=== PATIENT | male | born 1955 | race Caucasian/White ===

== ENCOUNTER 2019-04-22 00:14 | Emergency (ER) | payer MEDICARE, BC | END 2019-04-22 02:17 | disposition home or self-care (01) | LOC: ERS 00:14 | DX: F41.9 Anxiety disorder, unspecified (principal); F43.0 Acute stress reaction; E11.9 Type 2 diabetes mellitus without complications; E78.5 Hyperlipidemia, unspecified; E78.00 Pure hypercholesterolemia, unspecified; I10 Essential (primary) hypertension; F31.9 Bipolar disorder, unspecified; Z79.4 Long term (current) use of insulin | CPT/HCPCS: 99283 ==

== ENCOUNTER 2019-04-24 12:40 | Emergency (ER) | payer MEDICARE, BC ==
[2019-04-24 13:52] LABS: #Basophils 0.1 thou/uL (0.0-0.2); #Eosinphils 0.2 thou/uL (0.0-0.7); #Lymphocytes 1.6 thou/uL (1.20-3.40); #Monocytes 0.7 thou/uL (0.11-0.59); #Neutrophils 5.4 thou/uL (1.40-6.50); %Basophils 0.8 % (0.0-1.0); %Eosinophils 2.6 % (0.0-10.0); %Lymphocytes 19.6 % (21.0-51.0); %Monocytes 8.7 % (0.0-10.0); %Neutrophils 68.3 % (42.0-75.0); Hemoglobin 13.6 g/dL (14.0-18.0); Mean Corpuscular HGB CONC 35.1 g/dL (32.0-36.0); Mean Corpuscular Hemoglobin 30.8 pg (27.0-31.0); Mean Corpuscular Volume 87.9 fL (78.0-98.0); Mean Platelet Volume 7.9 fL (7.4-10.4); Platelet Count 215 thou/uL (130-400); RBC Distribution Width 12.2 % (11.5-14.5)
[2019-04-24 14:11] LABS: ALT (SGPT) 14 U/L (8-55); AST (SGOT) 15 U/L (5-34); Albumin 4.2 g/dL (3.4-4.8); Alkaline Phosphatase 56 U/L (40-110); Anion Gap 13 mmol/L (10-20); BUN (Urea Nitrogen) 20 mg/dL (8.4-25.7); Bilirubin, Total 0.4 mg/dL (0.2-1.2); Calc. Creatinine Clearance 0 mL/min (70-130); Calcium 9.5 mg/dL (7.8-10.44); Carbon Dioxide 25 mmol/L (23-31); Chloride 99 mmol/L (98-107); Estimated GFR-MDRD 54; Globulin 3.1 g/dL (2.4-3.5); Glucose 193 mg/dL (80-115); Potassium 4.6 mmol/L (3.5-5.1); Protein, Total 7.3 g/dL (5.8-8.1); Sodium 132 mmol/L (136-145)
--- NOTE | 2019-04-24 15:01 | CT ---
CT OF THE BRAIN WITHOUT CONTRAST: Date: 04/24/19 COMPARISON: None. HISTORY: Pressure headache. TECHNIQUE: Multiple contiguous axial images were obtained in a CT of the brain without contrast. FINDINGS: The brain is normal in morphology and attenuation without focal lesions or confluent areas of infarct ion. There is no evidence of hydrocephalus, intracranial hemorrhage, or extra-axial fluid collection. The calvarium and overlying soft tissues are unremarkable. The visualized paranasal sinuses and masto id air cells are well aerated. IMPRESSION: No evidence of acute intracranial abnormality. POS: OFF
--- NOTE | 2019-04-24 15:06 | CT ---
CT CERVICAL SPINE WITHOUT CONTRAST: HISTORY: Pressure headaches and neck pain. COMPARISON: None. TECHNIQUE: Multiple contiguous axial images were obtained in a CT of the cervical spine without contrast. Sagitt al and coronal reformats were performed. FINDINGS: The patient is status post anterior fusion of C4 through C6 with an anterior plate and screws. The ve rtebral bodies demonstrate normal height without fracture or subluxation. The remaining intervertebra l disks are narrowed throughout the cervical spine. No prevertebral soft tissue swelling is seen. The posterior facets are well aligned. Normal alignment of the skull base with the cervical spine is seen. IMPRESSION: No evidence of acute osseous abnormality of the cervical spine. POS: OFF
--- NOTE | 2019-04-24 15:15 | RAD ---
2 VIEWS CHEST: Date: 04/24/19 COMPARISON: None. HISTORY: Pressure headache and panic attacks. FINDINGS: Two views of the chest show normal sized cardiomediastinal silhouette. There is no evidence of consol idation, mass, or pleural effusion. Degenerative changes and hardware seen in the spine. IMPRESSION: No evidence of acute cardiopulmonary disease. POS: OFF
== END 2019-04-24 15:16 | disposition home or self-care (01) ==
LOC: ERS 12:40
DX: R51 Headache (principal); E11.9 Type 2 diabetes mellitus without complications; E78.5 Hyperlipidemia, unspecified; E78.00 Pure hypercholesterolemia, unspecified; I10 Essential (primary) hypertension; F31.9 Bipolar disorder, unspecified; F41.9 Anxiety disorder, unspecified; F17.290 Nicotine dependence, other tobacco product, uncomplicated; Z79.4 Long term (current) use of insulin; Z79.899 Other long term (current) drug therapy
CPT/HCPCS: 36415; 70450; 71046; 72125; 80053; 85025

== ENCOUNTER 2019-04-29 01:35 | Emergency (ER) | payer MEDICARE, BC ==
--- NOTE | 2019-04-29 10:58 | RAD ---
CHEST 1 VIEW: HISTORY: Chest tightness, panic attack, shortness of breath. COMPARISON: 04/24/2019. FINDINGS: Heart size is normal. The lungs are clear. IMPRESSION: No acute intrathoracic disease. POS: [facility]
== END 2019-04-29 02:14 | disposition home or self-care (01) ==
LOC: ERS 01:35
DX: F41.0 Panic disorder [episodic paroxysmal anxiety] (principal); E11.9 Type 2 diabetes mellitus without complications; E78.5 Hyperlipidemia, unspecified; E78.00 Pure hypercholesterolemia, unspecified; I10 Essential (primary) hypertension; F31.9 Bipolar disorder, unspecified; F41.9 Anxiety disorder, unspecified; F17.290 Nicotine dependence, other tobacco product, uncomplicated; Z79.899 Other long term (current) drug therapy; Z79.4 Long term (current) use of insulin; Z79.82 Long term (current) use of aspirin; Z79.84 Long term (current) use of oral hypoglycemic drugs
CPT/HCPCS: 71045; 93005

== ENCOUNTER 2020-07-07 01:58 | Emergency (ER) | payer MEDICARE, BC | END 2020-07-07 02:50 | disposition home or self-care (01) | LOC: ERS 01:58 | DX: E11.649 Type 2 diabetes mellitus with hypoglycemia without coma (principal); M62.838 Other muscle spasm; F41.9 Anxiety disorder, unspecified; E78.5 Hyperlipidemia, unspecified; E78.00 Pure hypercholesterolemia, unspecified; I10 Essential (primary) hypertension; E11.319 Type 2 diabetes mellitus with unspecified diabetic retinopathy without macular edema; F17.210 Nicotine dependence, cigarettes, uncomplicated; Z79.4 Long term (current) use of insulin; Z79.899 Other long term (current) drug therapy | CPT/HCPCS: 99284 ==

== ENCOUNTER 2022-02-09 14:53 | Emergency (ER) | payer MEDICARE, BC | END 2022-02-09 16:17 | disposition home or self-care (01) | LOC: ERS 14:53 | DX: U07.1 COVID-19 (principal) | CPT/HCPCS: 71045 ==

== ENCOUNTER 2022-06-22 13:54 | Outpatient (CLI) | payer MEDICARE, BC ==
[~2022-06-22 13:54] MED LIST: Magnevist 469MG/ML 20 ML VIAL ONE
== END 2022-06-22 13:55 | disposition home or self-care (01) ==
LOC: TBSIIMAG 13:54
PROVIDERS: ATTEND Urology
DX: R97.20 Elevated prostate specific antigen [PSA] (principal)
CPT/HCPCS: 72197; A9579

== ENCOUNTER 2023-05-06 13:03 | Outpatient (CLI) | payer MEDICARE, BC | END 2023-05-06 13:04 | disposition home or self-care (01) | LOC: SCSMRI 13:03 | PROVIDERS: ATTEND Anesthesiology Pain Medicine | DX: M47.22 Other spondylosis with radiculopathy, cervical region (principal); M48.02 Spinal stenosis, cervical region; M48.03 Spinal stenosis, cervicothoracic region; Z98.890 Other specified postprocedural states | CPT/HCPCS: 72141 ==